=== PATIENT | female | born 1975 | race Caucasian/White ===

== ENCOUNTER 2019-05-21 12:19 | Emergency (ER) | payer SELFPAY ==
[~2019-05-21] VITALS: Ht 154.9 cm; Wt 68.5 kg
[2019-05-21 12:41] VITALS: Ht 154.9 cm; Wt 68.5 kg
[2019-05-21 15:12] LABS: BASOPHIL % 0.3 % (0-2); PLATELET COUNT 385 x10^3mcL (130-400); RED CELL DISTRIBUTION WIDTH 13.5 % (11.5-14.5)
[2019-05-21 15:15] LABS: CALCIUM 9.2 mg/dL (8.5-10.1); CARBON DIOXIDE 27.3 mmol/L (21-32); CHLORIDE SERUM 102 mmol/L (98-107); CREATININE SERUM 0.7 mg/dL (0.6-1.0); GFR1 > 60 mL/min; GLUCOSE SERUM 86 mg/dL (74-106); POTASSIUM SERUM 3.5 mmol/L (3.5-5.1); SODIUM SERUM 136 mmol/L (136-145)
[2019-05-21 15:19] LABS: ALBUMIN 3.9 g/dL (3.4-5.0); ALKALINE PHOSPHATASE 107 U/L (46-116); ALT/SGPT 35 U/L (14-59); AMYLASE 86 U/L (25-115); AST/SGOT 17 U/L (15-37); BILIRUBIN TOTAL 0.3 mg/dL (0.20-1.00); LIPASE 637 IU/L (73-393)
[2019-05-21 17:08] VITALS: BP 132/81
== END 2019-05-21 17:08 | disposition home or self-care (01) ==
LOC: ED 12:19
PROVIDERS: Emergency Medicine
DX: R10.13 Epigastric pain (principal)
CPT/HCPCS: 36415; J1885

== ENCOUNTER 2019-07-05 01:37 | Emergency (ER) | payer SELFPAY ==
[~2019-07-05] VITALS: Ht 154.9 cm; Wt 68.0 kg
[2019-07-05 01:43] VITALS: Ht 154.9 cm; Wt 68.0 kg
[2019-07-05 02:27] LABS: BASOPHIL % 0.2 % (0-2); PLATELET COUNT 300 x10^3mcL (130-400); RED CELL DISTRIBUTION WIDTH 12.9 % (11.5-14.5)
[2019-07-05 02:48] LABS: CALCIUM 9.4 mg/dL (8.5-10.1); CHLORIDE SERUM 101 mmol/L (98-107); CREATININE SERUM 0.9 mg/dL (0.6-1.0); GFR1 > 60 mL/min; GLUCOSE SERUM 140 mg/dL (74-106); POTASSIUM SERUM 3.6 mmol/L (3.5-5.1); SODIUM SERUM 138 mmol/L (136-145)
[2019-07-05 03:01] LABS: ALBUMIN 3.8 g/dL (3.4-5.0); ALKALINE PHOSPHATASE 129 U/L (46-116); ALT/SGPT 95 U/L (14-59); AST/SGOT 61 U/L (15-37); T4(THYROXINE) 10.7 ug/dL (4.7-13.3); TOTAL PROTEIN, SERUM 7.8 g/dL (6.4-8.2)
[2019-07-05 04:38] VITALS: BP 134/74
== END 2019-07-05 04:38 | disposition home or self-care (01) ==
LOC: ED 01:37
PROVIDERS: Emergency Medicine
DX: R07.89 Other chest pain (principal)
CPT/HCPCS: 83880; 87804; C9113; J1885; J2270; J2405; Q0092